=== PATIENT | female | born 1980 | race Caucasian/White ===

== ENCOUNTER 2021-09-19 04:14 | Emergency (ER) | payer OTHER ==
[2021-09-19 04:48] VITALS: BP 115/75; PULSE 78; TEMP 97.7; BMI 31.8
[2021-09-19] MEDS ORDERED: ACETAMINOPHEN 325 MG TABLET (FP) PO ONE (06:39)
[2021-09-19 07:30] LABS: ALBUMIN 3.5 g/dl (3.4-5.0); CALCIUM 9.4 mg/dL (8.5-10.1)
[2021-09-19 07:31] LABS: BLOOD UREA NITROGEN 19.7 mg/dL (7-18)
[2021-09-19 07:34] LABS: CREATININE 0.8 mg/dL (0.55-1.3)
[2021-09-19 07:35] LABS: BILIRUBIN,TOTAL 0.4 mg/dL (0.2-1); TOT PROT 7.1 g/dl (6.4-8.2)
[2021-09-19 07:36] LABS: BASO % 0.6 % (0-2.0); EOS % 0.2 % (0-4.5); HEMATOCRIT 39.9 % (32.4-45.2); HEMOGLOBIN 13.2 GM/dL (10.7-15.3); LYMPH % 21.9 % (8-40); MCHC 33.2 g/dl (32.0-36.0); MEAN CELL VOLUME 90.6 fl (80-96); MEAN PLT VOLUME 9.4 fl (7.5-11.1); NEUT % 71.3 % (42.8-82.8); PLATELET COUNT 273 10^3/uL (134-434); RDW 13.6 % (11.6-15.6)
== END 2021-09-19 08:18 | disposition left against medical advice (07) ==
LOC: JER 04:14
DX: R10.84 Generalized abdominal pain (principal)
CPT/HCPCS: 36415; 80053; 83690; 84703; 85025; 99283-25